=== PATIENT | female | born 1955 | race Caucasian/White ===

== ENCOUNTER → 2022-02-06 11:29 | Outpatient (CLI) | payer OTHER, SELFPAY ==
[2022-02-06 12:02] LABS: COVID19 -Nasal RAPID POSITIVE (Negative)
== END ==
PROVIDERS: Referring Provider Orthopaedic Surgery; Visit Provider Orthopaedic Surgery
DX: U07.1 COVID-19 (principal)
CPT/HCPCS: 87635; C9803

== ENCOUNTER 2022-04-05 07:30 | Day surgery (SDC) | payer OTHER, MEDICAID, SELFPAY ==
[2022-03-27 12:45] VITALS: BMI 34.6
[2022-04-05] VITALS (7 sets, daily range): BP systolic 128–183; BP diastolic 52–82; PULSE 57–66; RESP 12–20; TEMP 36.6–36.7; O2SAT 96–100; BMI 34.6
--- NOTE | 2022-04-05 06:00 | DI.RAD.S_ITS ---
PROCEDURE: XR KNEE LT 1TO2V INDICATIONS: TKA TECHNIQUE: 2 view(s) of the knee acquired. COMPARISON: None. FINDINGS: Bones: Patient is status post knee joint arthroplasty. Hardware components are in expected positions. Visualized bony structures are intact. Soft tissues: Overlying postoperative changes are noted. IMPRESSION: Postop changes from left total knee arthroplasty with anatomic left knee alignment. Dictated by: Akash Valenzuela M.D. on 04/05/2022 at 11:44 Approved by: Akash Valenzuela M.D. on 04/05/2022 at 11:44
--- NOTE | 2022-04-05 08:19 | PM.PREOP ---
Pre-operative Note Interval Note History & Physical reviewed/Exam performed by Physician: Yes Changes to H&P: No
[2022-04-05] MEDS: ACETAMINOPHEN 325 MG TABLET 975 MG PO (08:22)
[2022-04-05] MEDS: CELECOXIB 200 MG CAPSULE PO (08:22)
[2022-04-05] MEDS: PREGABALIN 75 MG CAPSULE PO (08:22)
[2022-04-05 08:37] LABS: BUN Creatinine Ratio 13.7 (6-22); Blood Urea Nitrogen 19 mg/dL (7-17); Calcium 8.6 mg/dL (8.4-10.2); Carbon Dioxide 22 mmol/L (22-32); Chloride 106 mmol/L (98-107); Estimated Glomerular Filt Rate 42 mL/min (>60); Glucose 178 mg/dL (80-110); HEMOLYSIS < 15 (0-50); Potassium 4.3 mmol/L (3.4-5.1); Sodium 139 mmol/L (137-145)
[2022-04-05 08:45] LABS: COVID19 -Nasal RAPID Negative (Negative)
[2022-04-05] MEDS: LACTATED RINGERS 1,000 ML 42 ML IV ×3 (08:46→10:41)
[2022-04-05] MEDS: CEFAZOLIN 2 GM/100 ML PREMIX 100 ML IV (09:15)
[2022-04-05] MEDS: TRANEXAMIC ACID 1,000 MG VIAL 2000 MG INJ ×2 (09:24→10:25)
--- NOTE | 2022-04-05 09:36 | SUR.OPER ---
Supine on padded OR bed. Pillow under head, arms secured on padded armboards <90 degree abduction. Safety belt across torso. Non-operative leg secured with tape over blanket over lower leg. Operative leg secured in [employer] positioner.
[2022-04-05] MEDS: MORPHINE 4 MG/ML INJ INJ (09:40)
[2022-04-05] MEDS: BUPIVACAINE LIPOSOME 266 MG/20 ML VIAL INJ (09:40)
[2022-04-05] MEDS: BUPIVACAINE 0.25% (PF) 60 ML, EPINEPHrine 0.3 MG INJ (09:48)
[2022-04-05] MEDS: EPINEPHrine 1 MG/ML 0.3 MG INJ (09:52)
--- NOTE | 2022-04-05 10:46 | P.OP_ITS ---
Operative Date/Time/Diagnoses Date of procedure: 04/05/22 Time of procedure: 10:46 Pre-op diagnosis: Left knee osteoarthritis Post-op diagnosis: same Procedure & Clinicians Procedure: Left total knee replacement Same procedure as scheduled: Yes Indications: The patient has had progressively worsening left knee pain with radiographic changes consistent with arthritis. Non-operative management has failed and the patient has requested total knee replacement. The risks, benefits and alternatives to surgery were discussed with the patient prior to proceeding. Risks discussed included, but were not limited to, failure to relieve pain, stiffness, infection, nerve damage, deep venous thrombosis, pulmonary embolism, stroke, coma, heart attack, permanent paralysis and , as well as the potential need for eventual revision of the prosthetic. Surgeon: Jack Hernandez Mobile Sales Consultant: Chago Mckeon Click Yes if Unassisted: No Anesthesia Type: General, Spinal and Local Operative Notes Findings: Severe tricompartmental osteoarthritis Closure Type: primary Specimen(s): none sent Prosthetic devices, grafts, tissues, transplants, or devices: Implants used in this procedure were manufactured by the [employer] and included the BCS II Journey total knee replacement with a size 5 left Oxinium femoral component, a size 5 left non porous tibial base plate, a 9 mm cross-linked polyethylene tibial insert and a 35 mm oval Taya II patella. Applied: implant(s) Estimated Blood Loss (mL): 25 Blood products transfused: none Tourniquet time (min): 50 Procedure in detail: The patient was seen in the pre-operative area, where the left knee was identified as the operative site and this was marked with my initials. The p atient received pre-operative antibiotics, and was taken to the operating room and placed on the operative table in the supine position. After satisfactory anesthesia, a interactive multimedia designer out was performed. The left leg was encircled with a tourniquet about the proximal thigh, and the leg was prepared from the toes to the tourniquet with ChloroPrep in the usual fashion and draped through sterile drapes. The leg was elevated and exsanguinated with Eschmark bandage and the tourniquet inflated to 250 mmHg pressure. The knee was approached through an approximately 18 cm incision centered over the patella and carried into the knee through a medial parapatellar arthrotomy. The anterior osteophytes and soft tissues were removed. The rotational landmarks of Ashford's line and the transepicondylar axis were marked on the femur with electrocautery, and intramedullary guide holes for the femur and tibia were created. The distal femoral cut was made in 6 degrees of valgus using the intramedullary guide at the primary cut setting. The proximal tibial cut was then made using the intramedullary guide, taking 9 mm of bone off the less involved side. The extension gap was checked and the rotation of the femoral component confirmed with the gap balancing blocks. The anterior, posterior and chamfer cuts were then made. The posterior osteophytes and soft tissues were then removed. The posterior capsule was injected with part of a mixture of 60 ml 0.25% Marcaine mixed with 20 ml Exparel and 4 mg of morphine for post-operative pain control. The remainder of this mixture was injected into the capsule and subcutaneous tissues during cement curing. The tibia was prepared with the rotation set by an extra medullary guide. Trial tibial and femoral components were then placed and the intercondylar notch cut through the femoral trial. Range of motion was [], with good stability throughout the range. The patella was then cut to accommodate the patellar prosthetic. There was no need for a lateral release. The trials were then removed, and the femoral hole plugged with a bone plug. The bone was prepared with pulsatile lavage, and dried with a sponge. Cement was applied and the final prosthetics placed. Excess cement was removed during and after cement curing. After confirming there was no extruded cement posteriorly, the final tibial insert was placed. The knee was copiously irrigated and the tourniquet deflated. Hemostasis was obtained. The capsule was closed with interrupted # 2 polyester sutures. The subcutaneous layer was closed with 3-0 Vicryl, and the skin with a running 3-0 V-Lock suture and Dermabond. An Aquacel Ag dressing was applied and the patient was taken to recovery having tolerated the procedure well. The services of a skilled school health assistant were required during this procedure for positioning, exposure and retraction to protect vital structures. The services of Mr. Mckeon were necessary to provide a safe expedient surgical procedure. Complications: none Post-operative Condition: stable Disposition: PACU Plan for aftercare: The patient will be maintained on a standard total knee replacement protocol with weight bearing as tolerated. The patient will receive aspirin and sequential compression devices for DVT prophylaxis. The patient will be discharged home when safe for the home environment.
[2022-04-05] MEDS: OXYCODONE IR 5 MG TABLET PO ×2 (11:15→12:37)
[2022-04-05] MEDS: hydrOXYzine 50 MG/ML INJ 25 MG IM (11:56)
[2022-04-05] MEDS: ACETAMINOPHEN 325 MG TABLET 650 MG PO (11:56)
[2022-04-05] MEDS: ONDANSETRON 4 MG/2 ML INJ IV (11:56)
--- NOTE | 2022-04-05 12:45 | SUR.PHASEII ---
Patient sitting up to eat her lunch tray.
--- NOTE | 2022-04-05 13:16 | SUR.PHASEII ---
Patient ambulating to the bathroom with walker with very minimal assistance. Tolerating activity without difficulty. Voided prior to discharge without difficulty. Patient ate 100% of her lunch tray. All discharge instructions reviewed and all questions answered. Home with grandson in stable condition.
--- NOTE | 2022-04-05 13:29 | SUR.PHASEII ---
Patient still attempting to void. Call light in reach in bathroom. Will bladder scan patient if no void present after an appropriate time. Patient remains stable.
--- NOTE | 2022-04-05 13:48 | SUR.PHASEII ---
Bladder scan reveals [address] Hernandez of bladder scan results and if okay to discharge patient home with no void prior to discharge. Okay to discharge patient home without voiding. Notified patient.
== END 2022-04-05 13:17 | disposition home or self-care (01) ==
LOC: OR 07:33 → AC 07:34
PROVIDERS: Anesthesiology; Referring Provider Orthopaedic Surgery; Visit Provider Orthopaedic Surgery
PROC: 0SRD0JZ Replacement of Left Knee Joint with Synthetic Substitute, Open Approach (ICD-10-PCS; CPT 27447; principal; 2022-04-05 08:45)
DX: M17.12 Unilateral primary osteoarthritis, left knee (principal); E11.9 Type 2 diabetes mellitus without complications; Z79.84 Long term (current) use of oral hypoglycemic drugs; Z20.822 Contact with and (suspected) exposure to COVID-19; M25.762 Osteophyte, left knee
CPT/HCPCS: 27447; 36415; 73560; 80048; 87635; C1776; C9803; C1713; C9290; J0171; J0690; J1100; J1885; J2250; J2270; J2405; J2704; J3010; J3410